=== PATIENT | female | born 1975 | race Two or more races ===

== ENCOUNTER 2022-02-27 20:57 | Emergency (ER) | payer SELFPAY ==
[2022-02-27 22:49] VITALS: BP 155/95
[2022-02-27 23:00] VITALS: BP 171/99
[2022-02-27 23:15] VITALS: BP 173/99
[2022-02-28 00:46] LABS: HEMATOCRIT 38.7 % (37.0-47.0); HEMOGLOBIN 12.7 g/dl (12.0-16.0); IMMATURE GRANULOCYTES 0.1 % (0.0-5.0); MEAN CELL VOLUME 90.6 fL CALC (80.0-100.0); MEAN CORPUSCULAR HGB 29.7 pG CALC (26.0-32.0); MEAN CORPUSCULAR HGB CONC 32.8 g/dL CAL (32.0-36.0); NEUT# 5.04 thou/uL (2.00-7.15); RED BLOOD COUNT 4.27 mill/uL (4.20-5.60); RED CELL DISTRI WIDTH 13.4 % (11.5-15.5)
[2022-02-28 02:15] LABS: URINE COLOR YELLOW; URINE GLUCOSE - DIPSTICK NEGATIVE (NEGATIVE)
[2022-02-28 02:16] LABS: URINE BILIRUBIN - DIPSTICK NEGATIVE (NEGATIVE); URINE NITRITE - DIPSTICK NEGATIVE (Negative); URINE PH 7.5 (4.5-8.0); URINE PROTEIN - DIPSTICK 30 mg/dL (NEG-TRACE)
[2022-02-28 02:17] LABS: URINE BLOOD DIPSTICK SMALL (NEGATIVE); URINE KETONE NEGATIVE (NEGATIVE); URINE LEUK ESTERASE TRACE (NEGATIVE)
[2022-02-28 02:19] LABS: URINE BACTERIA MODERATE hpf; URINE EPITHELIAL CELLS FEW EPI/hpf (0-FEW)
[2022-02-28] MEDS ORDERED: BACTRIM DS1 TAB PO (02:21)
[2022-02-28 02:44] VITALS: BP 136/72
[2022-02-28 02:57] LABS: BUN 16 mg/dL (7-17); BUN/CREATININE RATIO 20 (12-20 (CALC)); CREATININE 0.8 mg/dL (0.5-1.0); GFR FOR AFR.AMER. > 60 ML/MIN (>=60 (CALC)); GFR OTHER RACES > 60 ML/MIN (>=60 (CALC)); POTASSIUM 3.8 mmol/l (3.5-5.1); SODIUM 141 mmol/l (137-146)
[2022-02-28 02:58] LABS: ALBUMIN 4.6 g/dL (3.2-5.0); ALKALINE PHOSPHATASE 63 u/l (38-126); ANION GAP 17 (6-22 (CALC)); BILIRUBIN, TOTAL 1.1 mg/dL (0.0-1.4); CARBON DIOXIDE 21 mmol/l (22-30); CHLORIDE 107 mmol/l (95-108); LIPASE 89 u/l (23-300); SGOT/AST 20 u/l (14-36); TOTAL PROTEIN 8.5 g/dL (6.3-8.2)
== END 2022-02-28 02:45 | disposition home or self-care (01) | DRG 690 ==
LOC: ED 20:57
PROVIDERS: Family Medicine
DX: N39.0 Urinary tract infection, site not specified (principal); B95.7 Other staphylococcus as the cause of diseases classified elsewhere

== ENCOUNTER 2022-08-10 19:22 | Emergency (ER) | payer MEDICAID ==
[2022-08-10] VITALS (12 sets, daily range): BP systolic 129–172; BP diastolic 76–106
[~2022-08-10] VITALS: Ht 167.6 cm; Wt 65.0 kg
[~2022-08-10 19:22] MED LIST: BACTRIM DS1 TAB PO
[2022-08-10 19:58] LABS: BASO% 0.4 % (0-3); EOS% 2.8 % (0-8); HEMATOCRIT 39.1 % (37.0-47.0); HEMOGLOBIN 12.9 g/dl (12.0-16.0); LYMPH% 43.8 % (15-41); MEAN CELL VOLUME 92.2 fL CALC (80.0-100.0); MEAN CORPUSCULAR HGB 30.4 pG CALC (26.0-32.0); NEUT# 1.78 thou/uL (2.00-7.15); RED BLOOD COUNT 4.24 mill/uL (4.20-5.60); RED CELL DISTRI WIDTH 13.2 % (11.5-15.5)
[2022-08-10 20:00] LABS: URINE BILIRUBIN - DIPSTICK NEGATIVE (NEGATIVE); URINE BLOOD DIPSTICK NEGATIVE (NEGATIVE); URINE COLOR YELLOW; URINE GLUCOSE - DIPSTICK NEGATIVE (NEGATIVE); URINE KETONE NEGATIVE (NEGATIVE); URINE LEUK ESTERASE NEGATIVE (NEGATIVE); URINE PH 7.5 (4.5-8.0); URINE PROTEIN - DIPSTICK NEGATIVE (NEG-TRACE); URINE SPECIFIC GRAVITY 1.025; URINE UROBILINOGEN - DIPSTICK 0.2 E.U./dL (0.2)
[2022-08-10 20:02] LABS: URINE NITRITE - DIPSTICK NEGATIVE (Negative)
[2022-08-10 20:03] LABS: HCG SERUM/URINE (NEG/POS) NEGATIVE (NEGATIVE)
[2022-08-10 20:08] LABS: ALBUMIN 4.5 g/dL (3.2-5.0); ALKALINE PHOSPHATASE 54 u/l (38-126); BUN 9 mg/dL (7-17); BUN/CREATININE RATIO 13 (12-20 (CALC)); CHLORIDE 107 mmol/l (95-108); CREATININE 0.7 mg/dL (0.5-1.0); GFR FOR AFR.AMER. > 60 ML/MIN (>=60 (CALC)); GFR OTHER RACES > 60 ML/MIN (>=60 (CALC)); POTASSIUM 3.8 mmol/l (3.5-5.1); SODIUM 140 mmol/l (137-146); TOTAL PROTEIN 8.2 g/dL (6.3-8.2)
[2022-08-10 20:20] LABS: ANION GAP 9 (6-22 (CALC)); BILIRUBIN, TOTAL 0.5 mg/dL (0.02-1.3); CARBON DIOXIDE 28 mmol/l (22-30); SGOT/AST 36 u/l (14-36)
[2022-08-10] MEDS ORDERED: ONDANSETRON4 MG PO (21:47)
[2022-08-10] MEDS ORDERED: MECLIZINE25 M1 PO (21:47)
[2022-08-10] MEDS ORDERED: FIORICET PO (21:47)
== END 2022-08-10 22:30 | disposition home or self-care (01) ==
LOC: ED 19:22
PROVIDERS: Emergency Medicine
DX: R51.9 Headache, unspecified (principal); R42 Dizziness and giddiness; I10 Essential (primary) hypertension; Z20.822 Contact with and (suspected) exposure to COVID-19

== ENCOUNTER 2023-07-31 18:10 | Emergency (ER) | payer MEDICAID ==
[~2023-07-31] VITALS: Ht 167.6 cm; Wt 70.0 kg
[~2023-07-31 18:10] MED LIST changes: +FIORICET PO; +MECLIZINE25 M1 PO; +ONDANSETRON4 MG PO
[2023-07-31 20:01] VITALS: BP 147/91
[2023-07-31 20:20] LABS: URINE BILIRUBIN - DIPSTICK Negative (NEGATIVE); URINE BLOOD DIPSTICK Trace-lysed (NEGATIVE); URINE CLARITY Clear; URINE GLUCOSE - DIPSTICK Negative (NEGATIVE); URINE KETONE 15 mg/dL (NEGATIVE); URINE LEUK ESTERASE Negative (Negative); URINE NITRITE - DIPSTICK Negative (Negative); URINE PH 5.5 (4.5-8.0); URINE PROTEIN - DIPSTICK Negative (NEG-TRACE); URINE UROBILINOGEN - DIPSTICK 0.2 E.U./dL (0.2)
[2023-07-31 20:22] LABS: URINE COLOR Yellow
[2023-07-31 20:22] LABS: BASO% 0.5 % (0-3); EOS% 2.8 % (0-8); HEMATOCRIT 41.8 % (37.0-47.0); HEMOGLOBIN 13.7 g/dl (12.0-16.0); IMMATURE GRANULOCYTES 0.2 % (0.0-5.0); LYMPH% 29.5 % (15-41); MEAN CELL VOLUME 90.1 fL CALC (80.0-100.0); MEAN CORPUSCULAR HGB 29.5 pG CALC (26.0-32.0); MEAN CORPUSCULAR HGB CONC 32.8 g/dL CAL (32.0-36.0); MONO% 8.4 % (2-13); NEUT# 3.82 thou/uL (2.00-7.15); NEUT% 58.6 % (42-76); RED BLOOD COUNT 4.64 mill/uL (4.20-5.60)
[2023-07-31 21:00] VITALS: BP 168/107
[2023-08-01] MEDS ORDERED: PAXLOVID PO (12:15)
[2023-08-01] MEDS ORDERED: AMOX/K CLAV875 M1 PO (12:15)
== END 2023-07-31 21:37 | disposition home or self-care (01) ==
LOC: ED 18:10
PROVIDERS: Family Medicine
DX: U07.1 COVID-19 (principal); R51.9 Headache, unspecified; R09.89 Other specified symptoms and signs involving the circulatory and respiratory systems; R30.0 Dysuria; I10 Essential (primary) hypertension

== ENCOUNTER 2023-08-01 11:04 | Emergency (ER) | payer MEDICAID ==
[~2023-08-01] VITALS: Ht 167.6 cm; Wt 70.0 kg
[2023-08-01 11:10] VITALS: BP 165/97
[2023-08-01 11:15] VITALS: BP 166/98
[2023-08-01 11:30] VITALS: BP 155/91
[2023-08-01] MEDS ORDERED: PAXLOVID PO (12:15)
[2023-08-01] MEDS ORDERED: AMOX/K CLAV875 M1 PO (12:15)
[2023-08-01 12:22] VITALS: BP 181/160
[2023-08-01 12:24] VITALS: BP 146/107
[2023-08-01 12:30] VITALS: BP 157/100
== END 2023-08-01 12:40 | disposition home or self-care (01) ==
LOC: ED 11:04
DX: U07.1 COVID-19 (principal); R53.1 Weakness; R05.9 Cough, unspecified; N39.0 Urinary tract infection, site not specified; I10 Essential (primary) hypertension